=== PATIENT | female | born 1965 | race Caucasian/White ===

== ENCOUNTER 2018-07-19 16:38 | Emergency (ER) | payer OTHER ==
[2018-07-19] MEDS ORDERED: Fentanyl 100 MCG/2 ML VIAL ONE (16:53)
[2018-07-19] MEDS ORDERED: Ketorolac Tromethamine 30 MG/ML VIAL ONE (16:53)
[2018-07-19] MEDS ORDERED: Ondansetron PF 4 MG/2 ML Vial ONE ×2 (16:53→16:54)
[2018-07-19 17:03] LABS: #Lymphocytes 0.9 thou/uL (1.20-3.40); #Monocytes 0.6 thou/uL (0.11-0.59); #Neutrophils 5.2 thou/uL (1.40-6.50); %Basophils 0.7 % (0.0-1.0); %Eosinophils 0.1 % (0.0-10.0); %Lymphocytes 13.4 % (21.0-51.0); %Monocytes 9.1 % (0.0-10.0); %Neutrophils 76.7 % (42.0-75.0); Hemoglobin 14.6 g/dL (12.0-16.0); Mean Corpuscular HGB CONC 33.7 g/dL (32.0-36.0); Mean Corpuscular Hemoglobin 31.5 pg (27.0-31.0); Mean Corpuscular Volume 93.5 fL (78.0-98.0); Mean Platelet Volume 7.1 fL (7.4-10.4); Platelet Count 231 thou/uL (130-400); RBC Distribution Width 11.6 % (11.5-14.5); Red Blood Cell (RBC) Count 4.62 mill/uL (4.20-5.40); White Blood Cell (WBC) Count 6.7 thou/uL (4.8-10.8)
[2018-07-19 17:28] LABS: ALT (SGPT) 14 U/L (8-55); AST (SGOT) 14 U/L (5-34); Albumin 4.3 g/dL (3.5-5.0); Alkaline Phosphatase 58 U/L (40-150); Anion Gap 15 mmol/L (10-20); BUN (Urea Nitrogen) 17 mg/dL (9.8-20.1); Bilirubin, Total 1.2 mg/dL (0.2-1.2); CK (CPK) 117 U/L (29-168); Calc. Creatinine Clearance 0 mL/min (70-130); Carbon Dioxide 24 mmol/L (22-29); Chloride 105 mmol/L (98-107); Estimated GFR-MDRD 58; Globulin 2.7 g/dL (2.4-3.5); Glucose 218 mg/dL (70-105); Lipase 24 U/L (8-78); Potassium 3.8 mmol/L (3.5-5.1); Sodium 140 mmol/L (136-145)
[2018-07-19 17:35] LABS: Bilirubin Negative (Negative); Blood, Urine Negative (Negative); Clarity TURBID (Clear); Glucose, Urine (Dipstick) 500 mg/dL (Negative); Leukocyte Negative (Negative); Nitrite Negative (Negative); Protein, Urine (Dipstick) Trace mg/dL (Neg-Trace); Specific Gravity, Urine 1.024 (1.002-1.036); Urobilinogen 0.2 mg/dL (0.2-1.0); pH, Urine 7.5 (5.0-9.0)
--- NOTE | 2018-07-19 17:59 | CT ---
CT ABDOMEN AND PELVIS: 07/19/2018 HISTORY: Lower abdominal pain. COMPARISON: None. TECHNIQUE: Serial axial CT imaging at 5 mm intervals, from the lung bases through the pubic symphysis, without c ontrast. Coronal reformatted imaging obtained. FINDINGS: The lack of contrast media limits assessment of the viscera, bowel, and vascular structures, and for lymphadenopathy. There is a focal area of relative lucency within the posterior medial aspect of the right lung base, likely congenital in nature. There are no acute findings seen within the lung bases. No free intraperitoneal air or fluid is seen. There is a subcentimeter lesion within the anterior aspect of the left lobe of the liver on image 14, measuring 6 mm, too small to characterize. There is a cyst within the lateral aspect of the right lobe of the liver, measuring 1.3 cm. Splenic granulomata are noted. The pancreas and the adrenal glands appear grossly unremarkable. There is a punctate, nonobstructing stone noted within the lower pole of the right kidney, on coronal image 62, measuring in the 3 mm range. No evidence for obstructive uropathy is appreciated on the r ight. There is nephromegaly and hydronephrosis on the left. There is also hydroureter on the left. There is a faint calcification along the posterior margin of the urinary bladder, on the left, on axial stephy ge 75, which measures approximately 2-3 mm. This is noted on coronal image 66. This is felt to like ly represent a renal stone, either at the left ureterovesical junction or within the urinary bladder, causing obstructive uropathy on the left. The appendix appears grossly unremarkable. No evidence for bowel obstruction. No acute osseous abno rmality. IMPRESSION: 1. Findings suggesting obstructive uropathy on the left, with a 2-3 mm stone, either at the level of the left ureterovesical junction or within the urinary bladder itself. 2. Nonobstructing stone, lower pole, right kidney. POS: [facility]
[2018-07-19] MEDS ORDERED: Ondansetron ODT 4 MG TAB ONE (18:09)
== END 2018-07-19 18:06 | disposition home or self-care (01) ==
LOC: ERS 16:38
DX: N13.2 Hydronephrosis with renal and ureteral calculous obstruction (principal)
CPT/HCPCS: 74176; 80053; 81003; 82550; 83690; 85025; 96361; 96374; 96375; J1885; J2405; J3010; Q0162